=== PATIENT | male | born 1950 | race Asian ===

== ENCOUNTER 2018-12-28 05:14 | Emergency (ER) | payer MEDICARE, OTHER ==
[2018-12-28] MEDS: ONDANSETRON 4 MG INJ IV (06:23)
[2018-12-28] MEDS: morphine 2 MG INJ IV (06:23)
[2018-12-28 06:57] LABS: ADD MAN DIFF? NO
[2018-12-28 07:01] LABS: BASOPHILS % 0.5 % (0.0-2.0); EOSINOPHILS % 0.3 % (0.0-7.0); HEMATOCRIT 38.7 % (42.0-52.0); HEMOGLOBIN 12.3 g/dl (14.0-18.0); LYMPHOCYTES # 1.6 10^3/ul (0.8-2.9); LYMPHOCYTES % 24.8 % (15.0-51.0); MEAN CORPUSCULAR HEMOGLOBIN 20.3 pg (29.0-33.0); MEAN CORPUSCULAR HGB CONC 31.8 g/dl (32.0-37.0); MEAN PLATELET VOLUME 10.1 fl (7.4-10.4); MONOCYTE # 0.4 10^3/ul (0.3-0.9); MONOCYTES % 6.7 % (0.0-11.0); NEUTROPHIL # 4.2 10^3/ul (1.6-7.5); NEUTROPHILS % 67.4 % (39.0-77.0); PLATELET COUNT 226 10^3/UL (140-415); RED BLOOD COUNT 6.05 10^6/ul (4.70-6.10); RED CELL DISTRIBUTION WIDTH 15.3 % (11.5-14.5)
[2018-12-28 07:01] LABS: WHITE BLOOD COUNT 6.2 10^3/ul (4.8-10.8)
[2018-12-28 07:02] LABS: ADD UMIC NO; UR ASCORBIC ACID NEGATIVE (NEGATIVE); UR BILIRUBIN (Dip) NEGATIVE (NEGATIVE); UR BLOOD (Dip) NEGATIVE (NEGATIVE); UR CLARITY CLEAR (CLEAR); UR COLOR STRAW (YELLOW); UR GLUCOSE (Dip) NEGATIVE (NEGATIVE); UR KETONES (Dip) TRACE mg/dL (NEGATIVE); UR LEUKOCYTE ESTERASE (Dip) NEGATIVE Leu/ul (NEGATIVE); UR NITRITE (Dip) NEGATIVE (NEGATIVE); UR SPECIFIC GRAVITY (Dip) 1.003 (1.003-1.030); UR TOTAL PROTEIN (Dip) NEGATIVE (NEGATIVE); UR UROBILINOGEN (Dip) NEGATIVE (NEGATIVE)
[2018-12-28 07:19] LABS: ALANINE AMINOTRANSFERASE 30 IU/L (13-69); ALBUMIN 4.6 g/dl (3.3-4.9); ALBUMIN/GLOBULIN RATIO 1.31; ALKALINE PHOSPHATASE 64 IU/L (42-121); ASPARTATE AMINO TRANSFERASE 33 IU/L (15-46); BLOOD UREA NITROGEN 12 mg/dl (7-20); CALCIUM 9.8 mg/dl (8.4-10.2); CARBON DIOXIDE 25 mmol/L (21-31); CHLORIDE 98 mmol/L (97-110); CREATININE 0.92 mg/dl (0.61-1.24); Estimated GFR > 60 mL/min (>60); GLUCOSE 145 mg/dl (70-220); LIPASE 147 U/L (23-300); POTASSIUM 3.3 mmol/L (3.5-5.1); TOTAL PROTEIN 8.1 g/dl (6.1-8.1)
[2018-12-28 07:20] LABS: PROTIME 12.3 Sec (11.9-14.9)
[2018-12-28 07:21] LABS: PARTIAL THROMBOPLASTIN TIME 35.2 Sec (23.0-35.0)
[2018-12-28 07:27] LABS: ANION GAP 13 (5-13); SODIUM 136 mmol/L (135-144)
[2018-12-28 07:30] LABS: TROPONIN-I < 0.012 ng/ml (0.000-0.120)
[2018-12-28] MEDS: SOD CHLORIDE 0.9% 100 ML (07:49)
[2018-12-28] MEDS: IOHEXOL 300MG/ML 150 ML BTL (07:49)
== END 2018-12-28 08:42 | disposition home or self-care (01) ==
LOC: FTE 05:14 → E/R 08:42
DX: R10.9 Unspecified abdominal pain (principal); I10 Essential (primary) hypertension
CPT/HCPCS: 36415; 71045; 74177; 80053; 81003; 83690; 84484; 85025; 85610; 85730; 93005; 96374; 96375; 99285-25

== ENCOUNTER 2018-12-30 22:21 | Emergency (ER) | payer MEDICARE, OTHER ==
[2018-12-31 00:27] LABS: URINE BLOOD (Dip) POC Trace-intact (NEGATIVE); URINE GLUCOSE (Dip) POC Negative (NEGATIVE); URINE KETONES (Dip) POC Negative (NEGATIVE); URINE LEUKOCYTE EST (Dip) POC Negative (NEGATIVE); URINE NITRITE (Dip) POC Negative (NEGATIVE); URINE TOTAL PROTEIN POC Negative (NEGATIVE)
[2018-12-31] MEDS: BISACODYL 10 MG SUPP PR (00:30)
[2018-12-31 00:31] LABS: WHITE BLOOD COUNT 7.8 10^3/ul (4.8-10.8)
[2018-12-31 00:31] LABS: ADD MAN DIFF? NO; BASOPHILS % 0.4 % (0.0-2.0); EOSINOPHILS # 0.1 10^3/ul (0.0-0.5); EOSINOPHILS % 0.8 % (0.0-7.0); HEMATOCRIT 39.9 % (42.0-52.0); HEMOGLOBIN 12.4 g/dl (14.0-18.0); LYMPHOCYTES # 2.7 10^3/ul (0.8-2.9); LYMPHOCYTES % 34.6 % (15.0-51.0); MEAN CORPUSCULAR HEMOGLOBIN 19.9 pg (29.0-33.0); MEAN CORPUSCULAR HGB CONC 31.1 g/dl (32.0-37.0); MEAN CORPUSCULAR VOLUME 63.9 fl (82.0-101.0); MEAN PLATELET VOLUME 9.7 fl (7.4-10.4); MONOCYTE # 0.6 10^3/ul (0.3-0.9); MONOCYTES % 7.7 % (0.0-11.0); NEUTROPHIL # 4.4 10^3/ul (1.6-7.5); NEUTROPHILS % 56.2 % (39.0-77.0); PLATELET COUNT 232 10^3/UL (140-415); RED BLOOD COUNT 6.24 10^6/ul (4.70-6.10); RED CELL DISTRIBUTION WIDTH 15.6 % (11.5-14.5)
[2018-12-31 00:51] LABS: ALANINE AMINOTRANSFERASE 27 IU/L (13-69); ALBUMIN 4.6 g/dl (3.3-4.9); ALBUMIN/GLOBULIN RATIO 1.35; ALKALINE PHOSPHATASE 58 IU/L (42-121); ANION GAP 10 (5-13); ASPARTATE AMINO TRANSFERASE 31 IU/L (15-46); BILIRUBIN,INDIRECT 1.2 mg/dl (0-1.1); BILIRUBIN,TOTAL 1.2 mg/dl (0.2-1.3); BLOOD UREA NITROGEN 11 mg/dl (7-20); CALCIUM 9.8 mg/dl (8.4-10.2); CARBON DIOXIDE 29 mmol/L (21-31); CHLORIDE 93 mmol/L (97-110); CREATININE 0.84 mg/dl (0.61-1.24); Estimated GFR > 60 mL/min (>60); GLUCOSE 130 mg/dl (70-220); LIPASE 313 U/L (23-300); POTASSIUM 3.5 mmol/L (3.5-5.1); SODIUM 132 mmol/L (135-144)
== END 2018-12-31 03:20 | disposition home or self-care (01) ==
LOC: E/R 22:21
DX: K59.00 Constipation, unspecified (principal); I10 Essential (primary) hypertension; D64.9 Anemia, unspecified; N40.0 Benign prostatic hyperplasia without lower urinary tract symptoms; R40.2142 Coma scale, eyes open, spontaneous, at arrival to emergency department; R40.2362 Coma scale, best motor response, obeys commands, at arrival to emergency department; R40.2252 Coma scale, best verbal response, oriented, at arrival to emergency department
CPT/HCPCS: 36415; 80053; 81003; 83690; 85025; 99283

== ENCOUNTER 2018-12-31 18:12 | Inpatient (IN) | payer MEDICARE, OTHER ==
[2018-12-31] MEDS: SOD CHLORIDE 0.9% 1,000 ML IV ×2 (18:44→22:33)
[2018-12-31 19:02] LABS: ADD MAN DIFF? NO
[2018-12-31 19:04] LABS: WHITE BLOOD COUNT 9.6 10^3/ul (4.8-10.8)
[2018-12-31 19:04] LABS: BASOPHILS % 0.1 % (0.0-2.0); EOSINOPHILS % 0.1 % (0.0-7.0); HEMATOCRIT 37.4 % (42.0-52.0); HEMOGLOBIN 11.9 g/dl (14.0-18.0); LYMPHOCYTES # 1.8 10^3/ul (0.8-2.9); LYMPHOCYTES % 18.7 % (15.0-51.0); MEAN CORPUSCULAR HEMOGLOBIN 20.1 pg (29.0-33.0); MEAN CORPUSCULAR HGB CONC 31.8 g/dl (32.0-37.0); MEAN CORPUSCULAR VOLUME 63.1 fl (82.0-101.0); MEAN PLATELET VOLUME 9.8 fl (7.4-10.4); MONOCYTE # 0.7 10^3/ul (0.3-0.9); MONOCYTES % 7.4 % (0.0-11.0); NEUTROPHIL # 7.1 10^3/ul (1.6-7.5); NEUTROPHILS % 73.4 % (39.0-77.0); PLATELET COUNT 206 10^3/UL (140-415); RED BLOOD COUNT 5.93 10^6/ul (4.70-6.10); RED CELL DISTRIBUTION WIDTH 14.9 % (11.5-14.5)
[2018-12-31 19:14] LABS: ADD UMIC NO; UR ASCORBIC ACID NEGATIVE (NEGATIVE); UR BILIRUBIN (Dip) NEGATIVE (NEGATIVE); UR BLOOD (Dip) NEGATIVE (NEGATIVE); UR CLARITY CLEAR (CLEAR); UR COLOR COLORLESS (YELLOW); UR GLUCOSE (Dip) NEGATIVE (NEGATIVE); UR KETONES (Dip) NEGATIVE (NEGATIVE); UR LEUKOCYTE ESTERASE (Dip) NEGATIVE Leu/ul (NEGATIVE); UR NITRITE (Dip) NEGATIVE (NEGATIVE); UR SPECIFIC GRAVITY (Dip) 1.002 (1.003-1.030); UR TOTAL PROTEIN (Dip) NEGATIVE (NEGATIVE); UR UROBILINOGEN (Dip) NEGATIVE (NEGATIVE)
[2018-12-31 19:22] LABS: ANION GAP 12 (5-13); BLOOD UREA NITROGEN 13 mg/dl (7-20); CALCIUM 9.4 mg/dl (8.4-10.2); CARBON DIOXIDE 25 mmol/L (21-31); CHLORIDE 90 mmol/L (97-110); CREATININE 0.94 mg/dl (0.61-1.24); Estimated GFR > 60 mL/min (>60); GLUCOSE 189 mg/dl (70-220); POTASSIUM 3.4 mmol/L (3.5-5.1); SODIUM 127 mmol/L (135-144)
[2018-12-31 19:34] LABS: TROPONIN-I < 0.012 ng/ml (0.000-0.120)
[2018-12-31] MEDS ORDERED: ONDANSETRON 4 MG INJ IV (20:00)
[2018-12-31] MEDS ORDERED: ACETAMINOPHEN 325 MG TAB PO ×2 (20:00→21:00)
[2018-12-31] MEDS ORDERED: DOCUSATE SODIUM 100 MG CAP PO (21:00)
[2018-12-31] MEDS ORDERED: NACL 0.9% 3 ML SYG IV (21:00)
[2018-12-31] MEDS: ONDANSETRON 4 MG INJ IV (22:32)
[2018-12-31] MEDS: BISACODYL (EC) 5 MG TAB PO (22:33)
[2019-01-01] MEDS: DIPHENHYDRAMINE 50 MG CAP PO (04:09)
[2019-01-01] MEDS: morphine 2 MG INJ IV (06:02)
[2019-01-01 07:14] LABS: ADD UMIC NO; UR ASCORBIC ACID NEGATIVE (NEGATIVE); UR BILIRUBIN (Dip) NEGATIVE (NEGATIVE); UR BLOOD (Dip) NEGATIVE (NEGATIVE); UR CLARITY CLEAR (CLEAR); UR COLOR COLORLESS (YELLOW); UR GLUCOSE (Dip) NEGATIVE (NEGATIVE); UR KETONES (Dip) NEGATIVE (NEGATIVE); UR LEUKOCYTE ESTERASE (Dip) NEGATIVE Leu/ul (NEGATIVE); UR NITRITE (Dip) NEGATIVE (NEGATIVE); UR SPECIFIC GRAVITY (Dip) 1.001 (1.003-1.030); UR TOTAL PROTEIN (Dip) NEGATIVE (NEGATIVE); UR UROBILINOGEN (Dip) NEGATIVE (NEGATIVE)
[2019-01-01 08:11] LABS: ADD MAN DIFF? NO
[2019-01-01 08:22] LABS: WHITE BLOOD COUNT 7.4 10^3/ul (4.8-10.8)
[2019-01-01 08:22] LABS: BASOPHILS % 0.3 % (0.0-2.0); EOSINOPHILS % 0.3 % (0.0-7.0); HEMOGLOBIN 11.9 g/dl (14.0-18.0); LYMPHOCYTES # 1.3 10^3/ul (0.8-2.9); LYMPHOCYTES % 16.8 % (15.0-51.0); MEAN CORPUSCULAR HGB CONC 31.3 g/dl (32.0-37.0); MEAN PLATELET VOLUME 10.2 fl (7.4-10.4); MONOCYTE # 0.7 10^3/ul (0.3-0.9); MONOCYTES % 9.9 % (0.0-11.0); NEUTROPHIL # 5.4 10^3/ul (1.6-7.5); NEUTROPHILS % 72.3 % (39.0-77.0); PLATELET COUNT 223 10^3/UL (140-415); RED BLOOD COUNT 5.94 10^6/ul (4.70-6.10); RED CELL DISTRIBUTION WIDTH 15.2 % (11.5-14.5)
[2019-01-01 08:43] LABS: LACTIC ACID 1.4 mmol/L (0.5-2.0)
[2019-01-01 08:49] LABS: ALANINE AMINOTRANSFERASE 26 IU/L (13-69); ALBUMIN 4.1 g/dl (3.3-4.9); ALBUMIN/GLOBULIN RATIO 1.46; ALKALINE PHOSPHATASE 45 IU/L (42-121); ANION GAP 10 (5-13); ASPARTATE AMINO TRANSFERASE 35 IU/L (15-46); BILIRUBIN,INDIRECT 0.8 mg/dl (0-1.1); BILIRUBIN,TOTAL 0.8 mg/dl (0.2-1.3); BLOOD UREA NITROGEN 9 mg/dl (7-20); CARBON DIOXIDE 26 mmol/L (21-31); CHLORIDE 100 mmol/L (97-110); CHOL/HDL RATIO 6.2 RATIO; CHOLESTEROL 201 mg/dl (100-200); CREATININE 0.86 mg/dl (0.61-1.24); Estimated GFR > 60 mL/min (>60); GLUCOSE 124 mg/dl (70-220); HDL CHOLESTEROL 32 mg/dl (31-75); LDL CHOLESTEROL,CALCULATED 144 mg/dl; MAGNESIUM 2.1 mg/dl (1.7-2.5); POTASSIUM 3.7 mmol/L (3.5-5.1); SODIUM 136 mmol/L (135-144); TOTAL PROTEIN 6.9 g/dl (6.1-8.1); TRIGLYCERIDES 124 mg/dl (0-149)
[2019-01-01 09:14] LABS: HEMOGLOBIN A1C 5.8 % (0-5.9)
[2019-01-01 09:17] LABS: OSMOLALITY,URINE 83 mOsm/kg (250-1200)
[2019-01-01 09:19] LABS: OSMOLALITY 275 mOsm/kg (280-295)
[2019-01-01] MEDS: SOD CHLORIDE 0.9% 100 ML (09:30)
[2019-01-01] MEDS: IOHEXOL 350MG/ML 50 ML BTL (09:30)
[2019-01-01] MEDS: IOHEXOL 100 ML (09:30)
[2019-01-01 09:43] LABS: RETICULOCYTE RBC 5.81
[2019-01-01 09:43] LABS: RETICULOCYTE COUNT # 0.049 X10^6 (0.020-0.110); RETICULOCYTE COUNT % 0.9 % (0.5-1.5)
[2019-01-01] MEDS: SOD CHLORIDE 0.9% 1,000 ML IV ×3 (10:04→23:24)
[2019-01-01] MEDS: PANTOPRAZOLE 40 MG INJ IV (10:22)
[2019-01-01 10:23] LABS: CARCINOEMBRYONIC ANTIGEN 1.3 ng/ml (0.0-5.0)
[2019-01-01] MEDS: BISACODYL (EC) 5 MG TAB PO ×3 (10:23→20:44)
[2019-01-01] MEDS: NIFEdipine (XL) 30 MG TAB PO (10:23)
[2019-01-01] MEDS: DOCUSATE SODIUM 100 MG CAP PO ×2 (10:24→20:44)
[2019-01-01] MEDS: LOSARTAN 50 MG TAB PO (10:24)
[2019-01-01 10:27] LABS: CANCER ANTIGEN 19-9 7.1 U/ml (0.0-37.0)
[2019-01-01 10:52] LABS: INR 0.99; PROTIME 13.2 Sec (11.9-14.9)
[2019-01-01 13:49] LABS: FOLATE 8.2 ng/ml (2.8-20.0)
[2019-01-01] MEDS: ASPIRIN (EC) 81 MG TAB PO (16:03)
[2019-01-01] MEDS: PEG/ELECTROLYTES 4L BTL PO ×2 (17:16→20:45)
[2019-01-01] MEDS: ATORVASTATIN 20 MG TAB PO (20:44)
[2019-01-01 21:05] LABS: OCCULT BLOOD STOOL NEGATIVE (NEGATIVE)
[2019-01-02] MEDS: SOD CHLORIDE 0.9% 1,000 ML IV (01:00)
[2019-01-02 07:07] LABS: ADD MAN DIFF? NO
[2019-01-02 07:12] LABS: BASOPHILS % 0.6 % (0.0-2.0); EOSINOPHILS # 0.1 10^3/ul (0.0-0.5); EOSINOPHILS % 1.1 % (0.0-7.0); HEMOGLOBIN 11.5 g/dl (14.0-18.0); LYMPHOCYTES # 1.9 10^3/ul (0.8-2.9); LYMPHOCYTES % 27.7 % (15.0-51.0); MEAN CORPUSCULAR HEMOGLOBIN 20.2 pg (29.0-33.0); MEAN CORPUSCULAR HGB CONC 31.1 g/dl (32.0-37.0); MEAN CORPUSCULAR VOLUME 64.9 fl (82.0-101.0); MEAN PLATELET VOLUME 10.3 fl (7.4-10.4); MONOCYTE # 0.5 10^3/ul (0.3-0.9); MONOCYTES % 7.3 % (0.0-11.0); NEUTROPHIL # 4.4 10^3/ul (1.6-7.5); NEUTROPHILS % 62.9 % (39.0-77.0); PLATELET COUNT 232 10^3/UL (140-415); RED CELL DISTRIBUTION WIDTH 15.9 % (11.5-14.5)
[2019-01-02 07:31] LABS: INR 0.98; PROTIME 13.1 Sec (11.9-14.9)
[2019-01-02 07:32] LABS: ALANINE AMINOTRANSFERASE 29 IU/L (13-69); ALBUMIN 3.8 g/dl (3.3-4.9); ALBUMIN/GLOBULIN RATIO 1.31; ALKALINE PHOSPHATASE 49 IU/L (42-121); ANION GAP 7 (5-13); ASPARTATE AMINO TRANSFERASE 36 IU/L (15-46); BILIRUBIN,INDIRECT 0.5 mg/dl (0-1.1); BILIRUBIN,TOTAL 0.5 mg/dl (0.2-1.3); BLOOD UREA NITROGEN 12 mg/dl (7-20); CALCIUM 8.7 mg/dl (8.4-10.2); CARBON DIOXIDE 28 mmol/L (21-31); CHLORIDE 107 mmol/L (97-110); CREATININE 0.82 mg/dl (0.61-1.24); Estimated GFR > 60 mL/min (>60); GLUCOSE 118 mg/dl (70-220); PARTIAL THROMBOPLASTIN TIME 33.7 Sec (23.0-35.0); POTASSIUM 3.4 mmol/L (3.5-5.1); SODIUM 142 mmol/L (135-144); TOTAL PROTEIN 6.7 g/dl (6.1-8.1)
[2019-01-02] MEDS: ENOXAPARIN 40 MG/0.4 ML SYG SC (09:00)
[2019-01-02] MEDS: LOSARTAN 50 MG TAB PO (09:10)
[2019-01-02] MEDS: ASPIRIN (EC) 81 MG TAB PO (09:10)
[2019-01-02] MEDS: BISACODYL (EC) 5 MG TAB PO (09:10)
[2019-01-02] MEDS: NIFEdipine (XL) 30 MG TAB PO (09:10)
[2019-01-02] MEDS: DOCUSATE SODIUM 100 MG CAP PO ×2 (09:11→20:45)
[2019-01-02] MEDS: POTASSIUM CHLORIDE (SR) 20 MEQ TAB PO (10:23)
[2019-01-02] MEDS: BALSAM PERU/CASTOR OIL 60 GM TUBE TOP ×2 (13:00→20:47)
[2019-01-02] MEDS: PROPOFOL 20 ML (14:36)
[2019-01-02] MEDS: ATORVASTATIN 20 MG TAB PO (20:45)
[2019-01-03] MEDS: SOD CHLORIDE 0.9% 1,000 ML IV ×2 (02:04→03:00)
[2019-01-03 06:30] LABS: ADD MAN DIFF? NO
[2019-01-03 06:35] LABS: WHITE BLOOD COUNT 7.6 10^3/ul (4.8-10.8)
[2019-01-03 06:35] LABS: BASOPHILS % 0.5 % (0.0-2.0); EOSINOPHILS # 0.1 10^3/ul (0.0-0.5); EOSINOPHILS % 1.8 % (0.0-7.0); HEMATOCRIT 37.7 % (42.0-52.0); HEMOGLOBIN 11.4 g/dl (14.0-18.0); LYMPHOCYTES # 1.9 10^3/ul (0.8-2.9); LYMPHOCYTES % 25.6 % (15.0-51.0); MEAN CORPUSCULAR HEMOGLOBIN 20.1 pg (29.0-33.0); MEAN CORPUSCULAR HGB CONC 30.2 g/dl (32.0-37.0); MEAN CORPUSCULAR VOLUME 66.6 fl (82.0-101.0); MEAN PLATELET VOLUME 9.6 fl (7.4-10.4); MONOCYTE # 0.5 10^3/ul (0.3-0.9); MONOCYTES % 6.2 % (0.0-11.0); NEUTROPHILS % 65.8 % (39.0-77.0); PLATELET COUNT 206 10^3/UL (140-415); RED BLOOD COUNT 5.66 10^6/ul (4.70-6.10); RED CELL DISTRIBUTION WIDTH 15.9 % (11.5-14.5)
[2019-01-03 07:13] LABS: ANION GAP 7 (5-13); BLOOD UREA NITROGEN 11 mg/dl (7-20); CALCIUM 8.9 mg/dl (8.4-10.2); CARBON DIOXIDE 28 mmol/L (21-31); CHLORIDE 105 mmol/L (97-110); CREATININE 0.82 mg/dl (0.61-1.24); Estimated GFR > 60 mL/min (>60); GLUCOSE 113 mg/dl (70-220); POTASSIUM 3.9 mmol/L (3.5-5.1); SODIUM 140 mmol/L (135-144)
[2019-01-03] MEDS: ASPIRIN (EC) 81 MG TAB PO (09:30)
[2019-01-03] MEDS: LOSARTAN 50 MG TAB PO (09:31)
[2019-01-03] MEDS: NIFEdipine (XL) 30 MG TAB PO (09:31)
[2019-01-03] MEDS: BISACODYL (EC) 5 MG TAB PO (09:31)
[2019-01-03] MEDS: DOCUSATE SODIUM 100 MG CAP PO (09:31)
[2019-01-03] MEDS: ENOXAPARIN 40 MG/0.4 ML SYG SC (09:32)
[2019-01-03] MEDS: BALSAM PERU/CASTOR OIL 60 GM TUBE TOP (09:34)
[2019-01-03] MEDS ORDERED: PANTOPRAZOLE (EC) 40 MG TAB PO (12:30)
== END 2019-01-03 14:35 | disposition home or self-care (01) | DRG 392 ==
LOC: E/R 18:12 → TEL 19:59
PROC: 0DB68ZX Excision of Stomach, Via Natural or Artificial Opening Endoscopic, Diagnostic (ICD-10-PCS; principal; 2019-01-02 14:35)
PROC: 0DJD8ZZ Inspection of Lower Intestinal Tract, Via Natural or Artificial Opening Endoscopic (ICD-10-PCS; 2019-01-02 14:35)
DX: K29.00 Acute gastritis without bleeding (principal); E87.1 Hypo-osmolality and hyponatremia; K55.1 Chronic vascular disorders of intestine; R55 Syncope and collapse; E86.0 Dehydration; K64.8 Other hemorrhoids; K64.4 Residual hemorrhoidal skin tags; K63.89 Other specified diseases of intestine; K59.09 Other constipation; R63.4 Abnormal weight loss; D50.9 Iron deficiency anemia, unspecified; I10 Essential (primary) hypertension; I73.9 Peripheral vascular disease, unspecified; E78.5 Hyperlipidemia, unspecified; K76.0 Fatty (change of) liver, not elsewhere classified; N28.9 Disorder of kidney and ureter, unspecified; Z87.891 Personal history of nicotine dependence
CPT/HCPCS: 36415; 70450; 71045; 72125; 75635; 76775; 80048; 80053; 80061; 81003; 82270; 82378; 82607; 82728; 82746; 83036; 83605; 83690; 83735; 83930; 83935; 84300; 84443; 84484; 85025; 85045; 85610; 85730; 86301; 88305; 88312; 93005; 93306; 93880; 93922; 99283; 99285-25; G0378

== ENCOUNTER 2019-02-13 13:48 | Emergency (ER) | payer MEDICARE, OTHER ==
[2019-02-13] MEDS: SOD CHLORIDE 0.9% 1,000 ML IV (15:18)
[2019-02-13] MEDS: ONDANSETRON 4 MG INJ IV (15:18)
[2019-02-13] MEDS: KETOROLAC 15 MG INJ IV (15:19)
[2019-02-13 15:29] LABS: ADD MAN DIFF? NO
[2019-02-13 15:38] LABS: WHITE BLOOD COUNT 5.6 10^3/ul (4.8-10.8)
[2019-02-13 15:38] LABS: BASOPHILS % 0.2 % (0.0-2.0); EOSINOPHILS % 0.2 % (0.0-7.0); HEMOGLOBIN 11.1 g/dl (14.0-18.0); LYMPHOCYTES # 1.6 10^3/ul (0.8-2.9); LYMPHOCYTES % 28.2 % (15.0-51.0); MEAN CORPUSCULAR HEMOGLOBIN 20.5 pg (29.0-33.0); MEAN CORPUSCULAR HGB CONC 30.8 g/dl (32.0-37.0); MEAN CORPUSCULAR VOLUME 66.5 fl (82.0-101.0); MEAN PLATELET VOLUME 9.5 fl (7.4-10.4); MONOCYTE # 0.5 10^3/ul (0.3-0.9); NEUTROPHIL # 3.6 10^3/ul (1.6-7.5); PLATELET COUNT 259 10^3/UL (140-415); RED BLOOD COUNT 5.41 10^6/ul (4.70-6.10); RED CELL DISTRIBUTION WIDTH 16.2 % (11.5-14.5)
[2019-02-13 15:44] LABS: ADD UMIC NO; UR ASCORBIC ACID NEGATIVE (NEGATIVE); UR BILIRUBIN (Dip) NEGATIVE (NEGATIVE); UR BLOOD (Dip) NEGATIVE (NEGATIVE); UR CLARITY CLEAR (CLEAR); UR COLOR STRAW (YELLOW); UR GLUCOSE (Dip) NEGATIVE (NEGATIVE); UR KETONES (Dip) NEGATIVE (NEGATIVE); UR LEUKOCYTE ESTERASE (Dip) NEGATIVE Leu/ul (NEGATIVE); UR NITRITE (Dip) NEGATIVE (NEGATIVE); UR SPECIFIC GRAVITY (Dip) 1.003 (1.003-1.030); UR TOTAL PROTEIN (Dip) NEGATIVE (NEGATIVE); UR UROBILINOGEN (Dip) NEGATIVE (NEGATIVE)
[2019-02-13 15:58] LABS: ALANINE AMINOTRANSFERASE 39 IU/L (13-69); ALBUMIN/GLOBULIN RATIO 1.21; ALKALINE PHOSPHATASE 55 IU/L (42-121); ANION GAP 6 (5-13); ASPARTATE AMINO TRANSFERASE 31 IU/L (15-46); BILIRUBIN,INDIRECT 0.9 mg/dl (0-1.1); BILIRUBIN,TOTAL 0.9 mg/dl (0.2-1.3); BLOOD UREA NITROGEN 8 mg/dl (7-20); CALCIUM 9.5 mg/dl (8.4-10.2); CARBON DIOXIDE 30 mmol/L (21-31); CHLORIDE 100 mmol/L (97-110); Estimated GFR > 60 mL/min (>60); GLUCOSE 120 mg/dl (70-220); LIPASE 91 U/L (23-300); POTASSIUM 3.3 mmol/L (3.5-5.1); SODIUM 136 mmol/L (135-144); TOTAL PROTEIN 7.3 g/dl (6.1-8.1)
== END 2019-02-13 18:20 | disposition home or self-care (01) ==
LOC: E/R 13:48
DX: R10.9 Unspecified abdominal pain (principal); I10 Essential (primary) hypertension; Z79.82 Long term (current) use of aspirin
CPT/HCPCS: 36415; 74176; 80053; 81003; 83690; 85025; 96361; 96374; 96375; 99285-25

== ENCOUNTER 2019-02-26 02:13 | Emergency (ER) | payer MEDICARE, OTHER ==
[2019-02-26] MEDS: morphine 4 MG/ML VIAL IV (03:49)
[2019-02-26] MEDS: SOD CHLORIDE 0.9% 1,000 ML IV (03:57)
[2019-02-26 04:02] LABS: ADD MAN DIFF? NO
[2019-02-26 04:07] LABS: BASOPHILS % 0.3 % (0.0-2.0); EOSINOPHILS # 0.1 10^3/ul (0.0-0.5); EOSINOPHILS % 0.8 % (0.0-7.0); HEMATOCRIT 35.1 % (42.0-52.0); HEMOGLOBIN 10.9 g/dl (14.0-18.0); LYMPHOCYTES # 1.6 10^3/ul (0.8-2.9); LYMPHOCYTES % 26.2 % (15.0-51.0); MEAN CORPUSCULAR HEMOGLOBIN 20.9 pg (29.0-33.0); MEAN CORPUSCULAR HGB CONC 31.1 g/dl (32.0-37.0); MEAN CORPUSCULAR VOLUME 67.2 fl (82.0-101.0); MEAN PLATELET VOLUME 9.9 fl (7.4-10.4); MONOCYTE # 0.6 10^3/ul (0.3-0.9); MONOCYTES % 9.9 % (0.0-11.0); NEUTROPHIL # 3.9 10^3/ul (1.6-7.5); NEUTROPHILS % 62.3 % (39.0-77.0); PLATELET COUNT 258 10^3/UL (140-415); RED BLOOD COUNT 5.22 10^6/ul (4.70-6.10); RED CELL DISTRIBUTION WIDTH 16.9 % (11.5-14.5)
[2019-02-26 04:07] LABS: WHITE BLOOD COUNT 6.2 10^3/ul (4.8-10.8)
[2019-02-26 04:08] LABS: ADD UMIC NO; UR ASCORBIC ACID NEGATIVE (NEGATIVE); UR BILIRUBIN (Dip) NEGATIVE (NEGATIVE); UR BLOOD (Dip) NEGATIVE (NEGATIVE); UR CLARITY CLEAR (CLEAR); UR COLOR COLORLESS (YELLOW); UR GLUCOSE (Dip) NEGATIVE (NEGATIVE); UR KETONES (Dip) NEGATIVE (NEGATIVE); UR LEUKOCYTE ESTERASE (Dip) NEGATIVE Leu/ul (NEGATIVE); UR NITRITE (Dip) NEGATIVE (NEGATIVE); UR SPECIFIC GRAVITY (Dip) 1.002 (1.003-1.030); UR TOTAL PROTEIN (Dip) NEGATIVE (NEGATIVE); UR UROBILINOGEN (Dip) NEGATIVE (NEGATIVE)
[2019-02-26 04:58] LABS: ALANINE AMINOTRANSFERASE 36 IU/L (13-69); ALBUMIN 4.1 g/dl (3.3-4.9); ALBUMIN/GLOBULIN RATIO 1.46; ALKALINE PHOSPHATASE 45 IU/L (42-121); ANION GAP 5 (5-13); ASPARTATE AMINO TRANSFERASE 37 IU/L (15-46); BILIRUBIN,INDIRECT 0.4 mg/dl (0-1.1); BILIRUBIN,TOTAL 0.4 mg/dl (0.2-1.3); BLOOD UREA NITROGEN 15 mg/dl (7-20); CALCIUM 9.3 mg/dl (8.4-10.2); CARBON DIOXIDE 30 mmol/L (21-31); CHLORIDE 98 mmol/L (97-110); CREATININE 0.83 mg/dl (0.61-1.24); Estimated GFR > 60 mL/min (>60); GLUCOSE 118 mg/dl (70-220); SODIUM 133 mmol/L (135-144); TOTAL PROTEIN 6.9 g/dl (6.1-8.1)
[2019-02-26] MEDS: NA PHOSPHATE/BIPHOS 133 ML ENEMA PR (05:18)
[2019-02-26] MEDS: MAGNESIUM CITRATE 300 ML BTL PO (05:40)
== END 2019-02-26 06:00 | disposition home or self-care (01) ==
LOC: E/R 02:13
DX: M54.5 Low back pain (principal); I10 Essential (primary) hypertension; K59.00 Constipation, unspecified; Z79.82 Long term (current) use of aspirin
CPT/HCPCS: 36415; 74018; 80053; 81003; 85025; 96374; 99284-25

== ENCOUNTER 2019-02-28 23:48 | Emergency (ER) | payer MEDICARE, OTHER ==
[2019-03-01 01:32] LABS: ADD MAN DIFF? NO
[2019-03-01] MEDS: ONDANSETRON 4 MG INJ IV (01:34)
[2019-03-01] MEDS: MAGNESIUM CITRATE 300 ML BTL PO (01:34)
[2019-03-01 01:35] LABS: WHITE BLOOD COUNT 6.4 10^3/ul (4.8-10.8)
[2019-03-01 01:35] LABS: BASOPHILS % 0.2 % (0.0-2.0); EOSINOPHILS # 0.1 10^3/ul (0.0-0.5); EOSINOPHILS % 0.9 % (0.0-7.0); HEMATOCRIT 37.9 % (42.0-52.0); HEMOGLOBIN 11.5 g/dl (14.0-18.0); LYMPHOCYTES # 1.6 10^3/ul (0.8-2.9); LYMPHOCYTES % 24.7 % (15.0-51.0); MEAN CORPUSCULAR HEMOGLOBIN 20.5 pg (29.0-33.0); MEAN CORPUSCULAR HGB CONC 30.3 g/dl (32.0-37.0); MEAN CORPUSCULAR VOLUME 67.6 fl (82.0-101.0); MONOCYTE # 0.5 10^3/ul (0.3-0.9); MONOCYTES % 8.4 % (0.0-11.0); NEUTROPHIL # 4.2 10^3/ul (1.6-7.5); NEUTROPHILS % 65.3 % (39.0-77.0); PLATELET COUNT 258 10^3/UL (140-415); RED BLOOD COUNT 5.61 10^6/ul (4.70-6.10); RED CELL DISTRIBUTION WIDTH 17.1 % (11.5-14.5)
[2019-03-01] MEDS: morphine 4 MG/ML VIAL IV (01:35)
[2019-03-01 01:42] LABS: ADD UMIC NO; UR ASCORBIC ACID NEGATIVE (NEGATIVE); UR BILIRUBIN (Dip) NEGATIVE (NEGATIVE); UR BLOOD (Dip) NEGATIVE (NEGATIVE); UR CLARITY CLEAR (CLEAR); UR COLOR COLORLESS (YELLOW); UR GLUCOSE (Dip) NEGATIVE (NEGATIVE); UR KETONES (Dip) NEGATIVE (NEGATIVE); UR LEUKOCYTE ESTERASE (Dip) NEGATIVE Leu/ul (NEGATIVE); UR NITRITE (Dip) NEGATIVE (NEGATIVE); UR SPECIFIC GRAVITY (Dip) 1.003 (1.003-1.030); UR TOTAL PROTEIN (Dip) NEGATIVE (NEGATIVE); UR UROBILINOGEN (Dip) NEGATIVE (NEGATIVE)
[2019-03-01 02:00] LABS: ALANINE AMINOTRANSFERASE 35 IU/L (13-69); ALBUMIN 4.4 g/dl (3.3-4.9); ALBUMIN/GLOBULIN RATIO 1.57; ALKALINE PHOSPHATASE 49 IU/L (42-121); ANION GAP 7 (5-13); ASPARTATE AMINO TRANSFERASE 34 IU/L (15-46); BILIRUBIN,INDIRECT 0.7 mg/dl (0-1.1); BILIRUBIN,TOTAL 0.7 mg/dl (0.2-1.3); BLOOD UREA NITROGEN 13 mg/dl (7-20); CALCIUM 9.8 mg/dl (8.4-10.2); CARBON DIOXIDE 31 mmol/L (21-31); CHLORIDE 99 mmol/L (97-110); CREATININE 0.78 mg/dl (0.61-1.24); Estimated GFR > 60 mL/min (>60); GLUCOSE 134 mg/dl (70-220); POTASSIUM 4.3 mmol/L (3.5-5.1); SODIUM 137 mmol/L (135-144); TOTAL PROTEIN 7.2 g/dl (6.1-8.1)
[2019-03-01] MEDS: TRIMETHOPRIM/SULFAMETHOX (DS) TAB PO (03:46)
== END 2019-03-01 04:10 | disposition home or self-care (01) ==
LOC: E/R 23:48
DX: N41.9 Inflammatory disease of prostate, unspecified (principal); I10 Essential (primary) hypertension; Z79.82 Long term (current) use of aspirin
CPT/HCPCS: 80053; 81003; 85025; 96374; 96375; 99284-25

== ENCOUNTER 2019-03-03 07:05 | Inpatient (IN) | payer MEDICARE, OTHER ==
[2019-03-03] MEDS: KETOROLAC 15 MG INJ IV (07:53)
[2019-03-03] MEDS: SOD CHLORIDE 0.9% 500 ML IV (07:54)
[2019-03-03 08:14] LABS: ADD MAN DIFF? NO
[2019-03-03 08:17] LABS: BASOPHILS % 0.2 % (0.0-2.0); HEMATOCRIT 38.5 % (42.0-52.0); HEMOGLOBIN 12.2 g/dl (14.0-18.0); LYMPHOCYTES # 1.4 10^3/ul (0.8-2.9); MEAN CORPUSCULAR HEMOGLOBIN 20.5 pg (29.0-33.0); MEAN CORPUSCULAR HGB CONC 31.7 g/dl (32.0-37.0); MEAN CORPUSCULAR VOLUME 64.7 fl (82.0-101.0); MEAN PLATELET VOLUME 9.4 fl (7.4-10.4); MONOCYTE # 0.6 10^3/ul (0.3-0.9); MONOCYTES % 6.4 % (0.0-11.0); NEUTROPHIL # 6.7 10^3/ul (1.6-7.5); NEUTROPHILS % 76.8 % (39.0-77.0); PLATELET COUNT 266 10^3/UL (140-415); RED BLOOD COUNT 5.95 10^6/ul (4.70-6.10); RED CELL DISTRIBUTION WIDTH 16.1 % (11.5-14.5)
[2019-03-03 08:17] LABS: WHITE BLOOD COUNT 8.8 10^3/ul (4.8-10.8)
[2019-03-03] MEDS: OXYCODONE/ACETAMINOPHEN (5/325) TAB PO ×2 (08:18→20:51)
[2019-03-03 08:29] LABS: ADD UMIC NO; UR ASCORBIC ACID NEGATIVE (NEGATIVE); UR BILIRUBIN (Dip) NEGATIVE (NEGATIVE); UR BLOOD (Dip) NEGATIVE (NEGATIVE); UR CLARITY CLEAR (CLEAR); UR COLOR STRAW (YELLOW); UR GLUCOSE (Dip) NEGATIVE (NEGATIVE); UR KETONES (Dip) NEGATIVE (NEGATIVE); UR LEUKOCYTE ESTERASE (Dip) NEGATIVE Leu/ul (NEGATIVE); UR NITRITE (Dip) NEGATIVE (NEGATIVE); UR SPECIFIC GRAVITY (Dip) 1.005 (1.003-1.030); UR TOTAL PROTEIN (Dip) NEGATIVE (NEGATIVE); UR UROBILINOGEN (Dip) NEGATIVE (NEGATIVE)
[2019-03-03 08:45] LABS: ALANINE AMINOTRANSFERASE 47 IU/L (13-69); ALBUMIN 4.4 g/dl (3.3-4.9); ALBUMIN/GLOBULIN RATIO 1.37; ALKALINE PHOSPHATASE 60 IU/L (42-121); ANION GAP 16 (5-13); ASPARTATE AMINO TRANSFERASE 68 IU/L (15-46); BILIRUBIN,INDIRECT 1.5 mg/dl (0-1.1); BILIRUBIN,TOTAL 1.5 mg/dl (0.2-1.3); BLOOD UREA NITROGEN 13 mg/dl (7-20); CALCIUM 9.8 mg/dl (8.4-10.2); CARBON DIOXIDE 24 mmol/L (21-31); CHLORIDE 87 mmol/L (97-110); CREATININE 0.85 mg/dl (0.61-1.24); Estimated GFR > 60 mL/min (>60); GLUCOSE 119 mg/dl (70-220); LIPASE 71 U/L (23-300); SODIUM 127 mmol/L (135-144); TOTAL PROTEIN 7.6 g/dl (6.1-8.1)
[2019-03-03] MEDS ORDERED: ACETAMINOPHEN 325 MG TAB PO (13:00)
[2019-03-03] MEDS ORDERED: NACL 0.9% 3 ML SYG IV (13:00)
[2019-03-03] MEDS ORDERED: ONDANSETRON 4 MG INJ IV (13:00)
[2019-03-03] MEDS: ASPIRIN (EC) 81 MG TAB PO (13:07)
[2019-03-03] MEDS: BISACODYL (EC) 5 MG TAB PO (13:07)
[2019-03-03] MEDS: MAGNESIUM HYDROXIDE 30ML CUP PO (13:07)
[2019-03-03] MEDS: LOSARTAN 50 MG TAB PO (13:08)
[2019-03-03] MEDS ORDERED: KETOROLAC 15 MG INJ IV (14:00)
[2019-03-03 15:11] LABS: SODIUM,URINE RANDOM 48 mmol/L (30-90)
[2019-03-03 15:40] LABS: ANION GAP 10 (5-13); BLOOD UREA NITROGEN 15 mg/dl (7-20); CALCIUM 9.8 mg/dl (8.4-10.2); CARBON DIOXIDE 32 mmol/L (21-31); CHLORIDE 91 mmol/L (97-110); CREATININE 1.06 mg/dl (0.61-1.24); Estimated GFR > 60 mL/min (>60); GLUCOSE 145 mg/dl (70-220); POTASSIUM 3.3 mmol/L (3.5-5.1); SODIUM 133 mmol/L (135-144)
[2019-03-03 16:00] LABS: ADD UMIC YES; UR ASCORBIC ACID NEGATIVE (NEGATIVE); UR BACTERIA FEW /HPF (NONE SEEN); UR BILIRUBIN (Dip) NEGATIVE (NEGATIVE); UR BLOOD (Dip) 3+ mg/dL (NEGATIVE); UR CLARITY CLEAR (CLEAR); UR COLOR YELLOW (YELLOW); UR GLUCOSE (Dip) NEGATIVE (NEGATIVE); UR KETONES (Dip) TRACE mg/dL (NEGATIVE); UR LEUKOCYTE ESTERASE (Dip) 1+ Leu/ul (NEGATIVE); UR NITRITE (Dip) NEGATIVE (NEGATIVE); UR RBC > 182 /HPF (0-5); UR SPECIFIC GRAVITY (Dip) 1.011 (1.003-1.030); UR TOTAL PROTEIN (Dip) NEGATIVE (NEGATIVE); UR UROBILINOGEN (Dip) NEGATIVE (NEGATIVE); UR WBC 4 /HPF (0-5)
[2019-03-03 17:23] LABS: OSMOLALITY,URINE 388 mOsm/kg (250-1200)
[2019-03-03] MEDS: POTASSIUM CHLORIDE (SR) 20 MEQ TAB PO (17:42)
[2019-03-03 20:39] LABS: PROSTATE SPECIFIC ANTIGEN 2.1 ng/ml (0.0-4.0)
[2019-03-03] MEDS: SENNA TAB PO (20:48)
[2019-03-03] MEDS: TAMSULOSIN (SR) 0.4 MG CAP PO (20:48)
[2019-03-03] MEDS: TRIMETHOPRIM/SULFAMETHOX (DS) TAB PO (20:48)
[2019-03-03] MEDS: ATORVASTATIN 80 MG TAB PO (20:48)
[2019-03-03] MEDS ORDERED: TAMSULOSIN (SR) 0.4 MG CAP PO (21:00)
[2019-03-04] MEDS: OXYCODONE/ACETAMINOPHEN (5/325) TAB PO ×2 (04:42→13:49)
[2019-03-04 06:01] LABS: ADD MAN DIFF? NO
[2019-03-04 06:04] LABS: WHITE BLOOD COUNT 7.8 10^3/ul (4.8-10.8)
[2019-03-04 06:04] LABS: BASOPHILS % 0.3 % (0.0-2.0); EOSINOPHILS % 0.4 % (0.0-7.0); HEMATOCRIT 36.7 % (42.0-52.0); HEMOGLOBIN 11.5 g/dl (14.0-18.0); LYMPHOCYTES # 1.9 10^3/ul (0.8-2.9); LYMPHOCYTES % 24.6 % (15.0-51.0); MEAN CORPUSCULAR HEMOGLOBIN 20.8 pg (29.0-33.0); MEAN CORPUSCULAR HGB CONC 31.3 g/dl (32.0-37.0); MEAN CORPUSCULAR VOLUME 66.4 fl (82.0-101.0); MONOCYTE # 0.7 10^3/ul (0.3-0.9); MONOCYTES % 8.9 % (0.0-11.0); NEUTROPHIL # 5.1 10^3/ul (1.6-7.5); NEUTROPHILS % 65.3 % (39.0-77.0); PLATELET COUNT 229 10^3/UL (140-415); RED BLOOD COUNT 5.53 10^6/ul (4.70-6.10); RED CELL DISTRIBUTION WIDTH 16.7 % (11.5-14.5)
[2019-03-04 06:34] LABS: ALANINE AMINOTRANSFERASE 40 IU/L (13-69); ALBUMIN 3.5 g/dl (3.3-4.9); ALBUMIN/GLOBULIN RATIO 1.16; ALKALINE PHOSPHATASE 44 IU/L (42-121); ANION GAP 6 (5-13); ASPARTATE AMINO TRANSFERASE 40 IU/L (15-46); BLOOD UREA NITROGEN 25 mg/dl (7-20); CALCIUM 9.3 mg/dl (8.4-10.2); CARBON DIOXIDE 28 mmol/L (21-31); CHLORIDE 97 mmol/L (97-110); CHOL/HDL RATIO 4.6 RATIO; CHOLESTEROL 172 mg/dl (100-200); CREATININE 1.14 mg/dl (0.61-1.24); Estimated GFR > 60 mL/min (>60); GLUCOSE 135 mg/dl (70-220); HDL CHOLESTEROL 37 mg/dl (31-75); LDL CHOLESTEROL,CALCULATED 116 mg/dl; MAGNESIUM 2.5 mg/dl (1.7-2.5); PHOSPHORUS 4.1 mg/dl (2.5-4.9); POTASSIUM 4.1 mmol/L (3.5-5.1); SODIUM 131 mmol/L (135-144); TOTAL PROTEIN 6.5 g/dl (6.1-8.1); TRIGLYCERIDES 94 mg/dl (0-149)
[2019-03-04] MEDS: PANTOPRAZOLE (EC) 40 MG TAB PO (07:31)
[2019-03-04] MEDS: ASPIRIN (EC) 81 MG TAB PO (08:40)
[2019-03-04] MEDS: LOSARTAN 50 MG TAB PO (08:40)
[2019-03-04] MEDS: BISACODYL (EC) 5 MG TAB PO (08:40)
[2019-03-04] MEDS: TAMSULOSIN (SR) 0.4 MG CAP PO ×2 (08:40→20:50)
[2019-03-04] MEDS: GABAPENTIN 100 MG CAP PO (08:40)
[2019-03-04] MEDS: TRIMETHOPRIM/SULFAMETHOX (DS) TAB PO ×2 (08:40→20:50)
[2019-03-04] MEDS: SENNA TAB PO ×2 (08:41→20:49)
[2019-03-04 11:18] LABS: IRON 58 ug/dl (35-150)
[2019-03-04 11:27] LABS: % IRON SATURATION 18 % SAT (22-52); TOTAL IRON BINDING CAPACITY 315 ug/dl (241-421)
[2019-03-04] MEDS: MAGNESIUM HYDROXIDE 30ML CUP PO (13:41)
[2019-03-04 16:12] LABS: CREATININE, RANDOM URINE 22 mg/dL (20-320); MICROALBUMIN 1.2 mg/dL; MICROALBUMIN/CREATININE RATIO 55 (<30)
[2019-03-04] MEDS: ATORVASTATIN 80 MG TAB PO (20:50)
[2019-03-05] MEDS: MAGNESIUM HYDROXIDE 30ML CUP PO ×2 (01:04→13:13)
[2019-03-05] MEDS: OXYCODONE/ACETAMINOPHEN (5/325) TAB PO ×2 (04:02→12:58)
[2019-03-05] MEDS: NA PHOSPHATE/BIPHOS 133 ML ENEMA PR (05:47)
[2019-03-05 06:13] LABS: ANION GAP 7 (5-13); BLOOD UREA NITROGEN 24 mg/dl (7-20); CALCIUM 9.3 mg/dl (8.4-10.2); CARBON DIOXIDE 30 mmol/L (21-31); CHLORIDE 95 mmol/L (97-110); Estimated GFR 55 mL/min (>60); GLUCOSE 167 mg/dl (70-220); MAGNESIUM 2.8 mg/dl (1.7-2.5); PHOSPHORUS 4.1 mg/dl (2.5-4.9); POTASSIUM 4.5 mmol/L (3.5-5.1); SODIUM 132 mmol/L (135-144)
[2019-03-05] MEDS: ASPIRIN (EC) 81 MG TAB PO (08:11)
[2019-03-05] MEDS: PANTOPRAZOLE (EC) 40 MG TAB PO (08:11)
[2019-03-05] MEDS: TAMSULOSIN (SR) 0.4 MG CAP PO ×2 (08:11→20:19)
[2019-03-05] MEDS: TRIMETHOPRIM/SULFAMETHOX (DS) TAB PO (08:11)
[2019-03-05] MEDS: GABAPENTIN 100 MG CAP PO (08:11)
[2019-03-05] MEDS: SENNA TAB PO ×2 (08:11→20:20)
[2019-03-05] MEDS: BISACODYL (EC) 5 MG TAB PO ×2 (08:11→11:45)
[2019-03-05] MEDS: LOSARTAN 50 MG TAB PO (08:12)
[2019-03-05] MEDS: DOCUSATE SODIUM 250 MG CAP PO ×2 (11:45→20:20)
[2019-03-05] MEDS: POLYETHYLENE GLYCOL 17 GM PACKET PO ×2 (11:46→20:19)
[2019-03-05] MEDS: LACTULOSE 30ML CUP PO (11:46)
[2019-03-05] MEDS: KETOROLAC 15 MG INJ IV (14:20)
[2019-03-05] MEDS: ATORVASTATIN 80 MG TAB PO (20:20)
[2019-03-06] MEDS: KETOROLAC 15 MG INJ IV (04:10)
[2019-03-06] MEDS: PANTOPRAZOLE (EC) 40 MG TAB PO (06:38)
[2019-03-06 07:37] LABS: ANION GAP 7 (5-13); BLOOD UREA NITROGEN 26 mg/dl (7-20); CALCIUM 8.7 mg/dl (8.4-10.2); CARBON DIOXIDE 29 mmol/L (21-31); CHLORIDE 96 mmol/L (97-110); Estimated GFR 55 mL/min (>60); GLUCOSE 123 mg/dl (70-220); MAGNESIUM 2.2 mg/dl (1.7-2.5); PHOSPHORUS 4.4 mg/dl (2.5-4.9); POTASSIUM 4.4 mmol/L (3.5-5.1); SODIUM 132 mmol/L (135-144)
[2019-03-06] MEDS: DOCUSATE SODIUM 250 MG CAP PO ×2 (08:49→20:32)
[2019-03-06] MEDS: GABAPENTIN 100 MG CAP PO (08:49)
[2019-03-06] MEDS: SENNA TAB PO ×2 (08:49→20:32)
[2019-03-06] MEDS: ASPIRIN (EC) 81 MG TAB PO (08:49)
[2019-03-06] MEDS: LACTULOSE 30ML CUP PO (08:49)
[2019-03-06] MEDS: TAMSULOSIN (SR) 0.4 MG CAP PO ×2 (08:49→20:31)
[2019-03-06] MEDS: POLYETHYLENE GLYCOL 17 GM PACKET PO (08:49)
[2019-03-06] MEDS: BISACODYL (EC) 5 MG TAB PO (08:49)
[2019-03-06] MEDS: MAGNESIUM HYDROXIDE 30ML CUP PO (12:33)
[2019-03-06] MEDS: HYDROmorphONE 1 MG/ML SYG IV (16:08)
[2019-03-06] MEDS: ATORVASTATIN 80 MG TAB PO (20:32)
[2019-03-07] MEDS: morphine 2 MG INJ IV ×2 (02:12→06:39)
[2019-03-07] MEDS: OXYCODONE/ACETAMINOPHEN (5/325) TAB PO (04:40)
[2019-03-07 06:02] LABS: ADD MAN DIFF? NO
[2019-03-07 06:20] LABS: WHITE BLOOD COUNT 6.1 10^3/ul (4.8-10.8)
[2019-03-07 06:20] LABS: BASOPHILS % 0.5 % (0.0-2.0); EOSINOPHILS % 0.7 % (0.0-7.0); HEMATOCRIT 37.1 % (42.0-52.0); HEMOGLOBIN 11.4 g/dl (14.0-18.0); LYMPHOCYTES # 1.4 10^3/ul (0.8-2.9); LYMPHOCYTES % 22.3 % (15.0-51.0); MEAN CORPUSCULAR HEMOGLOBIN 20.6 pg (29.0-33.0); MEAN CORPUSCULAR HGB CONC 30.7 g/dl (32.0-37.0); MEAN PLATELET VOLUME 9.4 fl (7.4-10.4); MONOCYTE # 0.5 10^3/ul (0.3-0.9); MONOCYTES % 7.5 % (0.0-11.0); NEUTROPHIL # 4.2 10^3/ul (1.6-7.5); NEUTROPHILS % 68.8 % (39.0-77.0); PLATELET COUNT 225 10^3/UL (140-415); RED BLOOD COUNT 5.54 10^6/ul (4.70-6.10); RED CELL DISTRIBUTION WIDTH 17.2 % (11.5-14.5)
[2019-03-07] MEDS: PANTOPRAZOLE (EC) 40 MG TAB PO (06:38)
[2019-03-07 07:11] LABS: ANION GAP 7 (5-13); BLOOD UREA NITROGEN 17 mg/dl (7-20); CALCIUM 9.3 mg/dl (8.4-10.2); CARBON DIOXIDE 27 mmol/L (21-31); CHLORIDE 101 mmol/L (97-110); CREATININE 0.88 mg/dl (0.61-1.24); Estimated GFR > 60 mL/min (>60); GLUCOSE 139 mg/dl (70-220); PHOSPHORUS 2.8 mg/dl (2.5-4.9); POTASSIUM 4.4 mmol/L (3.5-5.1); SODIUM 135 mmol/L (135-144)
[2019-03-07] MEDS: DOCUSATE SODIUM 250 MG CAP PO (08:24)
[2019-03-07] MEDS: SENNA TAB PO (08:24)
[2019-03-07] MEDS: ASPIRIN (EC) 81 MG TAB PO (08:25)
[2019-03-07] MEDS: POLYETHYLENE GLYCOL 17 GM PACKET PO (08:25)
[2019-03-07] MEDS: BISACODYL (EC) 5 MG TAB PO (08:25)
[2019-03-07] MEDS: TAMSULOSIN (SR) 0.4 MG CAP PO (08:25)
== END 2019-03-07 14:43 | disposition home or self-care (01) | DRG 644 ==
LOC: E/R 07:05 → TEL 09:44
DX: E22.2 Syndrome of inappropriate secretion of antidiuretic hormone (principal); N17.9 Acute kidney failure, unspecified; E78.5 Hyperlipidemia, unspecified; I10 Essential (primary) hypertension; N40.1 Benign prostatic hyperplasia with lower urinary tract symptoms; R33.8 Other retention of urine; Z98.890 Other specified postprocedural states; K59.09 Other constipation; Z87.891 Personal history of nicotine dependence; Z85.72 Personal history of non-Hodgkin lymphomas; D50.9 Iron deficiency anemia, unspecified; N41.9 Inflammatory disease of prostate, unspecified; G89.29 Other chronic pain; R10.2 Pelvic and perineal pain; I71.4 Abdominal aortic aneurysm, without rupture
CPT/HCPCS: 36415; 72195; 76856; 80048; 80053; 80061; 81001; 81003; 82043; 83036; 83540; 83690; 83735; 83935; 84100; 84153; 84154; 84155; 84300; 85025; 87086; 93005; 96374; 96375; 99284-25; 99285-25

== ENCOUNTER 2019-03-08 07:45 | Observation (INO) | payer MEDICARE, OTHER ==
[2019-03-08] MEDS: HYDROmorphONE 1 MG/ML SYG IV (08:20)
[2019-03-08 08:29] LABS: ADD MAN DIFF? NO
[2019-03-08 08:31] LABS: WHITE BLOOD COUNT 6.3 10^3/ul (4.8-10.8)
[2019-03-08 08:31] LABS: BASOPHILS % 0.3 % (0.0-2.0); EOSINOPHILS % 0.3 % (0.0-7.0); HEMATOCRIT 38.9 % (42.0-52.0); LYMPHOCYTES # 1.6 10^3/ul (0.8-2.9); LYMPHOCYTES % 25.6 % (15.0-51.0); MEAN CORPUSCULAR HEMOGLOBIN 20.8 pg (29.0-33.0); MEAN CORPUSCULAR HGB CONC 30.8 g/dl (32.0-37.0); MEAN CORPUSCULAR VOLUME 67.5 fl (82.0-101.0); MONOCYTE # 0.4 10^3/ul (0.3-0.9); MONOCYTES % 6.3 % (0.0-11.0); NEUTROPHIL # 4.2 10^3/ul (1.6-7.5); NEUTROPHILS % 67.2 % (39.0-77.0); PLATELET COUNT 232 10^3/UL (140-415); RED BLOOD COUNT 5.76 10^6/ul (4.70-6.10); RED CELL DISTRIBUTION WIDTH 17.1 % (11.5-14.5)
[2019-03-08 08:38] LABS: ADD UMIC NO; UR ASCORBIC ACID NEGATIVE (NEGATIVE); UR BILIRUBIN (Dip) NEGATIVE (NEGATIVE); UR BLOOD (Dip) NEGATIVE (NEGATIVE); UR CLARITY CLEAR (CLEAR); UR COLOR STRAW (YELLOW); UR GLUCOSE (Dip) NEGATIVE (NEGATIVE); UR KETONES (Dip) NEGATIVE (NEGATIVE); UR LEUKOCYTE ESTERASE (Dip) NEGATIVE Leu/ul (NEGATIVE); UR NITRITE (Dip) NEGATIVE (NEGATIVE); UR SPECIFIC GRAVITY (Dip) 1.005 (1.003-1.030); UR TOTAL PROTEIN (Dip) NEGATIVE (NEGATIVE); UR UROBILINOGEN (Dip) NEGATIVE (NEGATIVE)
[2019-03-08 08:45] LABS: ANION GAP 13 (5-13); BLOOD UREA NITROGEN 13 mg/dl (7-20); CALCIUM 9.5 mg/dl (8.4-10.2); CARBON DIOXIDE 23 mmol/L (21-31); CHLORIDE 97 mmol/L (97-110); CREATININE 0.77 mg/dl (0.61-1.24); Estimated GFR > 60 mL/min (>60); GLUCOSE 140 mg/dl (70-220); POTASSIUM 4.2 mmol/L (3.5-5.1); SODIUM 133 mmol/L (135-144)
[2019-03-08] MEDS: ONDANSETRON 4 MG INJ IV (09:04)
[2019-03-08] MEDS: HYDROmorphONE 2 MG/ML SYG IV (09:30)
[2019-03-08] MEDS: KETOROLAC 15 MG INJ IV (10:20)
[2019-03-08] MEDS: SOD CHLORIDE 0.9% 100 ML (10:21)
[2019-03-08] MEDS: IOHEXOL 300MG/ML 150 ML BTL (10:22)
[2019-03-08] MEDS ORDERED: NACL 0.9% 3 ML SYG IV (11:00)
[2019-03-08] MEDS ORDERED: HYDROCODONE/APAP (5/325) TAB PO (11:00)
[2019-03-08] MEDS ORDERED: ONDANSETRON 4 MG INJ IV ×2 (11:00)
[2019-03-08] MEDS ORDERED: ACETAMINOPHEN 325 MG TAB PO ×2 (11:00)
[2019-03-08] MEDS ORDERED: HALOPERIDOL 5 MG INJ IM (11:00)
[2019-03-08] MEDS ORDERED: morphine 2 MG INJ IV (11:00)
[2019-03-08] MEDS: LORAZEPAM 2 MG INJ IV (11:10)
[2019-03-08] MEDS ORDERED: hydrALAzine 20 MG INJ IV (11:30)
[2019-03-08] MEDS: LOSARTAN 50 MG TAB PO (13:09)
[2019-03-08] MEDS ORDERED: TAMSULOSIN (SR) 0.4 MG CAP PO (19:50)
[2019-03-08] MEDS ORDERED: ATORVASTATIN 80 MG TAB (19:50)
[2019-03-08] MEDS: TAMSULOSIN (SR) 0.4 MG CAP PO (20:03)
[2019-03-08] MEDS: ATORVASTATIN 80 MG TAB PO (20:03)
[2019-03-09] MEDS ORDERED: PANTOPRAZOLE (EC) 40 MG TAB PO (05:04)
[2019-03-09 05:37] LABS: ADD MAN DIFF? NO
[2019-03-09 05:48] LABS: WHITE BLOOD COUNT 6.6 10^3/ul (4.8-10.8)
[2019-03-09 05:48] LABS: BASOPHILS % 0.6 % (0.0-2.0); EOSINOPHILS # 0.1 10^3/ul (0.0-0.5); EOSINOPHILS % 0.8 % (0.0-7.0); HEMATOCRIT 36.1 % (42.0-52.0); HEMOGLOBIN 10.9 g/dl (14.0-18.0); LYMPHOCYTES # 1.8 10^3/ul (0.8-2.9); LYMPHOCYTES % 26.6 % (15.0-51.0); MEAN CORPUSCULAR HEMOGLOBIN 20.7 pg (29.0-33.0); MEAN CORPUSCULAR HGB CONC 30.2 g/dl (32.0-37.0); MEAN CORPUSCULAR VOLUME 68.5 fl (82.0-101.0); MONOCYTE # 0.5 10^3/ul (0.3-0.9); NEUTROPHIL # 4.2 10^3/ul (1.6-7.5); NEUTROPHILS % 63.7 % (39.0-77.0); PLATELET COUNT 210 10^3/UL (140-415); RED BLOOD COUNT 5.27 10^6/ul (4.70-6.10); RED CELL DISTRIBUTION WIDTH 16.8 % (11.5-14.5)
[2019-03-09 06:06] LABS: ALANINE AMINOTRANSFERASE 43 IU/L (13-69); ALBUMIN 3.3 g/dl (3.3-4.9); ALBUMIN/GLOBULIN RATIO 1.13; ALKALINE PHOSPHATASE 38 IU/L (42-121); ANION GAP 5 (5-13); ASPARTATE AMINO TRANSFERASE 33 IU/L (15-46); BILIRUBIN,INDIRECT 0.5 mg/dl (0-1.1); BILIRUBIN,TOTAL 0.5 mg/dl (0.2-1.3); BLOOD UREA NITROGEN 23 mg/dl (7-20); CALCIUM 8.9 mg/dl (8.4-10.2); CARBON DIOXIDE 31 mmol/L (21-31); CHLORIDE 100 mmol/L (97-110); CHOL/HDL RATIO 3.5 RATIO; CHOLESTEROL 112 mg/dl (100-200); CREATININE 0.88 mg/dl (0.61-1.24); Estimated GFR > 60 mL/min (>60); GLUCOSE 119 mg/dl (70-220); HDL CHOLESTEROL 32 mg/dl (31-75); LDL CHOLESTEROL,CALCULATED 64 mg/dl; MAGNESIUM 2.1 mg/dl (1.7-2.5); POTASSIUM 4.3 mmol/L (3.5-5.1); SODIUM 136 mmol/L (135-144); TOTAL PROTEIN 6.2 g/dl (6.1-8.1); TRIGLYCERIDES 81 mg/dl (0-149)
[2019-03-09 06:43] LABS: HEMOGLOBIN A1C 5.9 % (0-5.9)
[2019-03-09] MEDS: PANTOPRAZOLE (EC) 40 MG TAB PO (06:59)
[2019-03-09] MEDS: LOSARTAN 50 MG TAB PO (09:26)
[2019-03-09] MEDS: ASPIRIN (EC) 81 MG TAB PO (09:27)
[2019-03-09] MEDS ORDERED: DOCUSATE SODIUM 100 MG CAP PO (10:00)
[2019-03-09] MEDS: POLYETHYLENE GLYCOL 17 GM PACKET PO (11:41)
[2019-03-09] MEDS ORDERED: IBUPROFEN 600 MG TAB PO (14:00)
[2019-03-09] MEDS: SENNA/DOCUSATE NA (8.6MG/50MG) TAB PO (14:50)
== END 2019-03-09 15:11 | disposition home or self-care (01) ==
LOC: E/R 07:45 → PP2 10:48
DX: R10.30 Lower abdominal pain, unspecified (principal); K62.89 Other specified diseases of anus and rectum; I10 Essential (primary) hypertension; E78.5 Hyperlipidemia, unspecified; E78.00 Pure hypercholesterolemia, unspecified; N40.1 Benign prostatic hyperplasia with lower urinary tract symptoms; R33.8 Other retention of urine; Z72.0 Tobacco use; K59.00 Constipation, unspecified; K29.70 Gastritis, unspecified, without bleeding; K64.9 Unspecified hemorrhoids; I70.209 Unspecified atherosclerosis of native arteries of extremities, unspecified extremity; Z79.82 Long term (current) use of aspirin; I71.9 Aortic aneurysm of unspecified site, without rupture; F41.9 Anxiety disorder, unspecified
CPT/HCPCS: 36415; 74177; 80048; 80053; 80061; 81003; 83036; 83735; 84443; 85025; 96374; 96375; 96376; 99217; 99285-25